=== PATIENT | female | born 1950 | race Caucasian/White ===

== ENCOUNTER 2022-04-10 09:05 | Outpatient (CLI) | payer OTHER | END 2022-04-10 09:06 | disposition home or self-care (01) | LOC: CSHLAB 09:05 | PROVIDERS: ATTEND Family Medicine | DX: Z20.822 Contact with and (suspected) exposure to COVID-19 (principal); R06.02 Shortness of breath | CPT/HCPCS: 87811 ==

== ENCOUNTER 2022-04-13 08:32 | Outpatient (CLI) | payer OTHER | END 2022-04-13 08:33 | disposition home or self-care (01) | LOC: CSHCP 08:32 | PROVIDERS: ATTEND Family Medicine | DX: R06.02 Shortness of breath (principal); R94.2 Abnormal results of pulmonary function studies | CPT/HCPCS: 94060; 94726; 94729; 94760 ==